=== PATIENT | male | born 1940 | race Two or more races ===

== ENCOUNTER 2018-05-26 07:01 | Day surgery (SDC) | payer OTHER ==
[2018-05-26] MEDS ORDERED: PROPOFOL 40 ML (09:16)
== END 2018-05-26 10:06 | disposition home or self-care (01) ==
LOC: GIL 07:01
DX: Z12.11 Encounter for screening for malignant neoplasm of colon (principal); D12.6 Benign neoplasm of colon, unspecified; K57.90 Diverticulosis of intestine, part unspecified, without perforation or abscess without bleeding; K64.9 Unspecified hemorrhoids; I10 Essential (primary) hypertension; I25.10 Atherosclerotic heart disease of native coronary artery without angina pectoris
CPT/HCPCS: 45380; 88305